=== PATIENT | female | born 1975 | race Caucasian/White ===

== ENCOUNTER 2018-08-16 10:01 | Emergency (ER) | payer OTHER ==
--- NOTE | 2018-08-16 10:43 | ED ---
Bite Injury/Animal - HPI Summary HPI Summary: Patient is a 43 y/o F presenting to ED via ambulance with complaints of dog bite to left upper thigh while on jog this morning. is present in the room. She states that EMS were concerned of possible dog tooth at the area. Dog history is unknown. Patient states that dog five roll refiner batch mixer was yelling at her to stop running while at [employer]. She stopped, dog [employer] ref[employer] batch mixer continued to yell at patient to stop running. At this time, dog bit her, five roll refiner batch mixer left the scene. Last tetanus shot is reported to be 5 years ago in 2012. EMS covered area with 4x4. Patient denies PMHx and home medications. On triage, pain is rated 5/10. Nothing is noted to aggravate/alleviate Sx. Home medications and allergies are reviewed. - History of Current Complaint Chief Complaint: EDAnimalBite Stated Complaint: DOG BITE Time Seen by Provider: 08/16/18 10:36 Hx Obtained From: Patient Hx Last Menstrual Period: last week Onset of Injury: Happened hours ago, Still Present Type of Bite: Pet - dog Has Animal Been Immunized?: Unknown Severity Currently: Moderate - 5/10 Pain Intensity: 5 Pain Scale Used: 0-10 Numeric - 5/10 Character: Puncture, Abrasion/Laceration Aggravating Factor(s): Nothing Alleviating Factor(s): Nothing Associated Signs And Symptoms: Positive: Negative - Allergies/Home Medications Allergies/Adverse Reactions: Allergies Allergy/AdvReac Type Severity Reaction Status Date / Time No Known Allergies Allergy Verified 07/20/16 16:02 PMH/Surg Hx/FS Hx/Imm Hx Endocrine/Hematology History: Denies: Hx Diabetes, Hx Thyroid Disease Cardiovascular History: Denies: Hx Hypertension, Hx Pacemaker/ICD Respiratory History: Denies: Hx Asthma, Hx Chronic Obstructive Pulmonary Disease (COPD) GI History: Denies: Hx Ulcer History: Denies: Hx Renal Disease Musculoskeletal History: Denies: Hx Rheumatoid Arthritis, Hx Osteoporosis Sensory History: Denies: Hx Hearing Aid Psychiatric History: Denies: Hx Panic Disorder - Cancer History Hx Chemotherapy: No Hx Radiation Therapy: No Infectious Disease History: No Infectious Disease History: Denies: Hx Hepatitis, Hx Human Immunodeficiency Virus (HIV), Traveled Outside the [place] in Last 30 Days - Family History Known Family History: Negative: Hypertension, Diabetes - Social History Alcohol Use: Weekly Alcohol Amount: 3x week Substance Use Type: Reports: None Smoking Status (MU): Never Smoked Tobacco Review of Systems Negative: Fever - on vitals, temp is 97.9 F Positive: Other - dog bite at left upper thigh All Other Systems Reviewed And Are Negative: Yes Physical Exam - Summary Physical Exam Summary: Appearance: The patient is well-nourished in no acute distress and in no acute pain. Skin: The skin is warm and dry and skin color reflects adequate perfusion. There is a 1.25 cm puncture type laceration with associated abrasion to the left proximal anterior thigh. HEENT: The head is normocephalic and atraumatic. The pupils are equal and reactive. The conjunctivae are clear and without drainage. Nares are patent and without drainage. Mouth reveals moist mucous membranes and the throat is without erythema and exudate. The external ears are intact. The ear canals are patent and without drainage. The tympanic membranes are intact. Neck: The neck is supple with full range of motion and non-tender. There are no carotid bruits. There is no neck vein distension. Respiratory: Chest is non-tender. Lungs are clear to auscultation and breath sounds are symmetrical and equal. Cardiovascular: Heart is regular rate and rhythm. There is no murmur or rub auscultated. There is no peripheral edema and pulses are symmetrical and equal. Abdomen: The abdomen is soft and non-tender. There are normal bowel sounds heard in all four quadrants and there is no organomegaly palpated. Musculoskeletal: There is no back tenderness noted. Extremities are non-tender with full range of motion. There is good capillary refill. There is no peripheral edema or calf tenderness elicited. Neurological: Patient is alert and oriented to person, place and time. The patient has symmetrical motor strength in all four extremities. Cranial nerves are grossly intact. Deep tendon reflexes are symmetrical and equal in all four extremities. Psychiatric: The patient has an appropriate affect and does not exhibit any anxiety or depression. Triage Information Reviewed: Yes Vital Signs On Initial Exam: Initial Vitals Temp Pulse Resp BP Pulse Ox 97.9 F 68 16 158/97 100 08/16/18 10:09 08/16/18 10:08/16/18 10:08/16/18 10:08/16/18 10:09 Vital Signs Reviewed: Yes Procedures - Laceration/Wound Repair 1 Location: lower extremity - Proximal, anteromedial right thigh Description: Linear Anesthesia: Local, 1.0% Length, Depth and Shape: 1 1/4 cm long and about 1 cm deep Betadine Prep?: No - Hibiclens Irrigated w/ Saline (ccs): 100 - Difficult to re-exoress fluid Laceration/Wound Explored: clean Closure: Single Layer Suture Type: Nylon - #2 5.0 Nylon simple interrupted Number of Sutures: 2 Layer Closure?: No Sterile Dressing Applied?: Yes - Neosporin and band-aid Diagnostics - Vital Signs Vital Signs Temp Pulse Resp BP Pulse Ox 08/16/18 10:09 97.9 F 68 16 158/97 100 - Laboratory Lab Statement: Any lab studies that have been ordered have been reviewed, and results considered in the medical decision making process. Bite Injury Course/Dx - Course Course Of Treatment: Ms. Lazar was attacked by a leashed dog. The five roll refiner batch mixer then left the scene. The police have been contacted and she believes they will find the five roll refiner batch mixer and be able to quarantine the dog if necessary. If not, I recommended that she return immediately for prophylaxis. The wound was not extensive but a puncture wound and at risk for infection. She was given a script for Augmentin. - Diagnoses Provider Diagnosis: Dog bite of left thigh Discharge - Sign-Out/Discharge Documenting (check all that apply): Patient Departure - discharge - Discharge Plan Condition: Stable Disposition: HOME Prescriptions: Amoxicillin/Clavulanate TAB* [Augmentin TAB 875*] 875 mg PO BID #10 tab Patient Education Materials: Animal Bite (ED) Referrals: Shavon Trotter MD [Primary Care Provider] - 08/26/18 Additional Instructions: RETURN TO ED FOR ANY NEW OR WORSENING SYMPTOMS. SUTURES OUT IN TEN DAYS. - Billing Disposition and Condition Condition: STABLE Disposition: Home - Attestation Statements Document Initiated by Isaiasibe: Yes Documenting Scribe: ANNIE LOVETT Provider For Whom Kelly is Documenting (Include Credential): JEFF ANDREW MD Scribe Attestation: ANNIE Mckeon , scribed for JEFF ANDREW MD on 08/16/18 at 1252. Scribe Documentation Reviewed: Yes Provider Attestation: The documentation as recorded by the ANNIE easley accurately reflects the service I personally performed and the decisions made by me, JEFF ANDREW MD Status of Scribe Document: Viewed
[2018-08-16 11:18] VITALS: BP 129/79
== END 2018-08-16 11:17 | disposition home or self-care (01) ==
LOC: ED 10:01
DX: S71.112A Laceration without foreign body, left thigh, initial encounter (principal); W54.0XXA Bitten by dog, initial encounter; Y93.02 Activity, running; Y92.89 Other specified places as the place of occurrence of the external cause
CPT/HCPCS: 12001; 99282

== ENCOUNTER 2019-11-15 15:40 | Emergency (ER) | payer OTHER ==
--- NOTE | 2019-11-15 16:06 | ED ---
HPI Febrile Illness - HPI Summary HPI Summary: This patient is a 44 year old female presenting to [facility] over COVID-19 concerns. Patient states she at a conference in [facility] in November 03. She reports low-grade fever up to 100.5 F, cough, and mild SOB starting today. Patient denies n/v/d. She had a flu shot this year. She called health department who recommended testing for COVID-19. She went to [facility] who recommended she comes here. No medical or family Hx. - History of Current Complaint Time Seen by Provider: 11/15/19 15:47 Hx Obtained From: Patient Hx Last Menstrual Period: last week Onset/Duration: Started Hours Ago - Allergy/Home Medications Allergies/Adverse Reactions: Allergies Allergy/AdvReac Type Severity Reaction Status Date / Time No Known Allergies Allergy Verified 07/20/16 16:02 Home Medications: Home Medications Amoxicillin/Clavulanate TAB* [Augmentin TAB 875*] 875 mg PO BID #10 tab [Rx] PMH/Surg Hx/FS Hx/Imm Hx Endocrine/Hematology History: Denies: Hx Diabetes, Hx Thyroid Disease Cardiovascular History: Denies: Hx Hypertension, Hx Pacemaker/ICD Respiratory History: Denies: Hx Asthma, Hx Chronic Obstructive Pulmonary Disease (COPD) GI History: Denies: Hx Ulcer History: Denies: Hx Renal Disease Musculoskeletal History: Denies: Hx Rheumatoid Arthritis, Hx Osteoporosis Sensory History: Denies: Hx Hearing Aid Psychiatric History: Denies: Hx Panic Disorder - Cancer History Hx Chemotherapy: No Hx Radiation Therapy: No Infectious Disease History: Denies: Hx Hepatitis, Hx Human Immunodeficiency Virus (HIV) - Family History Known Family History: Negative: Hypertension, Diabetes - Social History Alcohol Use: Weekly Alcohol Amount: 3x week Substance Use Type: Reports: None Smoking Status (MU): Never Smoked Tobacco Review of Systems Positive: Fever Positive: Shortness Of Breath, Cough Negative: Abdominal Pain, Vomiting, Nausea All Other Systems Reviewed And Are Negative: Yes Physical Exam - Summary Physical Exam Summary: Constitutional: Well-developed, Well-nourished, Alert. (-) Distressed Skin: Warm, Dry HENT: Normocephalic; Atraumatic Eyes: Conjunctiva normal Neck: Musculoskeletal ROM normal neck. (-) JVD, (-) Stridor, (-) Tracheal deviation Cardio: Rhythm regular, rate normal, Heart sounds normal; Intact distal pulses; The pedal pulses are 2+ and symmetric. Radial pulses are 2+ and symmetric. (-) Murmur Pulmonary/Chest wall: Effort normal. (-) Respiratory distress, (-) Wheezes, (-) Rales Abd: Soft, (-) tenderness, (-) Distension, (-) Guarding, (-) Rebound Musculoskeletal: (-) Edema Lymph: (-) Cervical adenopathy Neuro: Alert, Oriented x3 Psych: Mood and affect Normal Triage Information Reviewed: Yes Vital Signs On Initial Exam: Temp Pulse Resp BP Pulse Ox 98.7 F 82 16 149/82 98 11/15/19 15:40 11/15/19 15:40 11/15/19 15:40 11/15/19 15:40 11/15/19 15:40 Vital Signs Reviewed: Yes Procedures - Sedation Patient Received Moderate/Deep Sedation with Procedure: No Diagnostics - Laboratory Lab Statement: Any lab studies that have been ordered have been reviewed, and results considered in the medical decision making process. - Radiology CXR Radiology Interpretation Completed By: ED Physician Summary of Radiographic Findings: No acute process. Pending official radiology report. Course/Dx - Course Course Of Treatment: Patient is here with 1 day of fever and cough. Patient traveled to [facility] and intended a conference roughly 9 days ago. Patient developed fever and cough today. Patient negative rapid influenza and chest x- ray. Given patient's child to an endemic area of Covid 19, patient was tested. Patient did not meet requirements for admission to the hospital - Diagnoses Provider Diagnoses: Fever, Cough Discharge ED - Sign-Out/Discharge Documenting (check all that apply): Patient Departure - Discharge - Discharge Plan Condition: Stable Disposition: HOME Referrals: Shavon Trotter MD [Medical Doctor] - Additional Instructions: Follow the quarantine rules discussed in the packet. Do not leave your house under any circumstances. Follow the directions in the packet. If you would like to come back to the ED, call the health department first. - Billing Disposition and Condition Condition: STABLE Disposition: Home - Attestation Statements Document Initiated by Scribe: Yes Documenting Scribe: Noel Verde Provider For Whom Scribe is Documenting (Include Credential): Jose Manuel Davis MD Scribe Attestation: Noel Mckeon, scribed for Jose Manuel Davis MD on 11/15/19 at 1852. Scribe Documentation Reviewed: Yes Provider Attestation: The documentation as recorded by the scribe, Noel Verde accurately reflects the service I personally performed and the decisions made by me, Jose Manuel Davis MD Status of Scribe Document: Viewed
[2019-11-15 18:25] LABS: Influenza A Molecular Negative (Negative); Influenza B Molecular Negative (Negative)
[2019-11-15 19:42] VITALS: BP 123/88
--- NOTE | 2019-11-19 08:47 | ED ---
Imaging and Labs Follow Up Follow Up Type: Labs/Cultures Labs/Culture Result: positive for rhinovirus. neg covid Patient Communication/Plan: called and left vm about results Provider Diagnoses: Fever, Cough
== END 2019-11-15 19:41 | disposition home or self-care (01) ==
LOC: ED 15:40
DX: R50.9 Fever, unspecified (principal); R05 Cough; R06.02 Shortness of breath; Z20.828 Contact with and (suspected) exposure to other viral communicable diseases
CPT/HCPCS: 71045; 99282